=== PATIENT | female | born 1950 | race Two or more races ===

== ENCOUNTER 2023-02-02 09:44 | Emergency (ER) | payer MEDICARE, OTHER ==
[~2023-02-02] VITALS: Ht 157.5 cm; Wt 83.5 kg
[2023-02-02 10:50] VITALS: BP 132/77; PULSE 82; RESP 18; TEMP 98.3; O2SAT 97
[2023-02-02] MEDS ORDERED: DexAMETHasone SOD PHOS 10MG/1ML VIAL INJ IM ONE (11:45)
[2023-02-02] MEDS ORDERED: HYDROcodone-ACET 5/325MG TAB PO ONE (11:45)
[2023-02-02] MEDS ORDERED: HYDR-4902 PO (12:50)
== END 2023-02-02 13:01 | disposition home or self-care (01) ==
LOC: ER 09:44
DX: S52.611A Displaced fracture of right ulna styloid process, initial encounter for closed fracture (principal); S52.501A Unspecified fracture of the lower end of right radius, initial encounter for closed fracture; W18.39XA Other fall on same level, initial encounter; Y93.89 Activity, other specified; Y92.89 Other specified places as the place of occurrence of the external cause; Y99.8 Other external cause status
CPT/HCPCS: 29125; 73110; 96372; 99283; J1100